=== PATIENT | female | born 1950 | race Caucasian/White ===

== ENCOUNTER → 2017-07-29 | Outpatient (CLI) | payer BC | LOC: GMA 20:53 | PROVIDERS: ATTEND Nurse Practitioner Acute Care | DX: N30.00 Acute cystitis without hematuria (principal) ==

== ENCOUNTER → 2017-07-31 | Outpatient (CLI) | payer BC ==
--- NOTE | 2017-07-31 16:32 | RAD ---
EXAM DESCRIPTION: KUB CLINICAL HISTORY: 67 years Female, Unspecified abdominal pain COMPARISON: None. FINDINGS: The bowel gas pattern is nonobstructive. There are a few small pelvic calcifications which probably represent phleboliths. Postoperative changes are noted in the lumbar spine at multiple levels.. IMPRESSION: Probable pelvic phleboliths. If clinically suspicious of a distal ureteral calculus, noncontrast CT is recommended. No obstruction or other acute intra-abdominal abnormality. Postoperative changes in the lumbar spine. Electronically signed by: Low Gaona MD 07/31/2017 4:31 PM CDT Workstation: [id number]
== END | disposition home or self-care (01) ==
LOC: RAD 15:55
PROVIDERS: ATTEND Obstetrics & Gynecology
DX: R10.9 Unspecified abdominal pain (principal)

== ENCOUNTER → 2017-10-29 | Outpatient (CLI) | payer BC ==
--- NOTE | 2017-10-31 14:34 | MAM ---
EXAM DESCRIPTION: 3D Screening BILATERAL : Digital Mammography. CLINICAL HISTORY: 67 years Female SCREENING . Deep itching below skin. Mother with breast cancer. Postmenopausal. Hormone replacement 5 or more years ago. Prior lumpectomy right breast. COMPARISON: 2-D digital screening bilateral study 10/23/2016 and 09/19/2015. 2-D digital diagnostic right breast study 09/27/2015. Report from prior examination also reviewed. TECHNIQUE: Bilateral CC and MLO projection full-field images, 3-D tomosynthesis digital mammographic technique. Also bilateral synthesized CC/ MLO full-field images. CAD not utilized. FINDINGS: The breast parenchymal density pattern is: Heterogeneously dense breast tissue, which may obscure small masses. No skin thickening or nipple retraction Bilateral axillary lymph nodes. Bilateral solitary microcalcifications. Stable mass with relatively well-circumscribed borders, 5.5 cm from the nipple, in the upper outer quadrant of the anterior third of the right breast at the 930 clock position. No focal, stellate mass or density, focal asymmetry , and no suspicious microcalcifications bilaterally. Stable mammograms compared to prior study, taking into account differences in mammographic technique IMPRESSION: BI-RADS CATEGORY: 2 - BENIGN FINDINGS. FOLLOW UP: Routine digital bilateral screening, one year interval from October 2017. Written communication explaining the IMPRESSION and follow-up, will be mailed to the patient and referring health care provider. According to the [employer], yearly mammograms are recommended starting at age 40 and continuing as long as a woman is in good health. Any breast change noted on a breast self-exam should be reported promptly to the patient's healthcare provider. Breast MRI is recommended for women with an approximately 20-25% or greater lifetime risk of breast cancer, including women with a strong family history of breast or ovarian cancer and women who have been treated for Hodgkin's disease. A negative mammographic report should not delay tissue diagnosis in patients with significant clinical history or physical findings. Extremely dense breast tissue limits the sensitivity of digital mammography. Electronically signed by: Manuelito De MD 10/31/2017 2:33 PM MAPPING ENGINEER
== END ==
LOC: MAMMO 09:56
PROVIDERS: ATTEND Family Medicine
DX: Z12.31 Encounter for screening mammogram for malignant neoplasm of breast (principal)
CPT/HCPCS: 77063; G0202

== ENCOUNTER → 2018-04-01 | Outpatient (CLI) | payer BC ==
--- NOTE | 2018-04-01 16:56 | MAM ---
EXAM DESCRIPTION: 3D Diagnostic, Bilateral: Digital Mammography CLINICAL HISTORY: 67 yearsFemaleLUMP palpable lump mid third right breast upper outer quadrant. Mother with breast cancer. Remote family history of breast cancer. Postmenopausal. Prior cyst aspiration biopsy right breast. Has taken HRT 5 or more years ago.. COMPARISON: 3-D screening bilateral mammography 10/29/2017. Reports from prior examinations also reviewed. TECHNIQUE: Bilateral LM projection full-field images, 3-D tomosynthesis and synthesis full-field images, digital mammographic technique. Also right breast tomosynthesis and synthesis CC MLO full-field images. CAD not utilized. FINDINGS: The breast parenchymal density pattern is: Heterogeneously dense breast tissue, which may obscure small masses. No skin thickening or nipple retraction bilateral solitary microcalcifications. Right axillary lymph node. Approximately 1 cm mass density in the anterior third of the right breast at the 900 clock position. Stable since the prior study. Skin marker at the 1100 clock position. No focal, stellate mass or density, focal asymmetry , and no suspicious microcalcifications left breast. ULTRASOUND: Scanning at the 1200 clock position of the right breast 5 cm from the nipple. Well-defined anechoic mass with thin leonard measuring 8.8 mm. Not vascular. Parallel orientation. Posterior acoustic enhancement. More medial is an anechoic object with well-defined and thin leonard and posterior acoustic enhancement. Nonvascular with parallel orientation. Maximum diameter is 5.3 mm. These are consistent with cysts. Surrounding mostly fibroglandular tissues with minimal fatty echotexture. No distinct solid mass. No parenchymal edema or large calcifications. No overlying skin changes. No abnormal Doppler vascularity. IMPRESSION: BI-RADS CATEGORY: 2 - BENIGN FINDINGS. FOLLOW UP: Return to routine digital bilateral screening, one year interval from October 2017. The FINDINGS and the FOLLOW-UP plan were reviewed in person with the patient after the examination. Written communication explaining the IMPRESSION and FOLLOW-UP will be mailed to the patient and referring care provider. According to the [employer], yearly mammograms are recommended starting at age 40 and continuing as long as a woman is in good health. Any breast change noted on a breast self-exam should be reported promptly to the patient's healthcare provider. Breast MRI is recommended for women with an approximately 20-25% or greater lifetime risk of breast cancer, including women with a strong family history of breast or ovarian cancer and women who have been treated for Hodgkin's disease. A negative mammographic report should not delay tissue diagnosis in patients with significant clinical history or physical findings. Extremely dense breast tissue limits the sensitivity of digital mammography. Electronically signed by: Manuelito De MD 04/01/2018 4:55 PM CDT
--- NOTE | 2018-04-01 16:56 | US ---
EXAM DESCRIPTION: Breast,Right: Ultrasound CLINICAL HISTORY: 67 yearsFemaleBREAST LUMP COMPARISON: Digital 3-D diagnostic tomosynthesis bilateral mammography on this visit. TECHNIQUE: Transcutaneous scanning of the right breast utilizing two-dimensional and Doppler modes. Scanning performed by the rotary peel oven tender only. FINDINGS: Scanning at the 1200 clock position of the right breast 5 cm from the nipple. Well-defined anechoic mass with thin leonard measuring 8.8 mm. Not vascular. Parallel orientation. Posterior acoustic enhancement. More medial is an anechoic object with well-defined and thin leonard and posterior acoustic enhancement. Nonvascular with parallel orientation. Maximum diameter is 5.3 mm. These are consistent with cysts. Surrounding mostly fibroglandular tissues with minimal fatty echotexture. No distinct solid mass. No parenchymal edema or large calcifications. No overlying skin changes. No abnormal Doppler vascularity. IMPRESSION: 1. Bi-Rads Category 2: Benign. 2. Please refer to bilateral diagnostic 3-D tomosynthesis mammographic examination and report on this visit. The FINDINGS and the FOLLOW-UP plan were reviewed in person with the patient after the examination. Written communication explaining the IMPRESSION and FOLLOW-UP will be mailed to the patient and referring care provider. Electronically signed by: Manuelito De MD 04/01/2018 4:55 PM CDT
== END ==
LOC: MAMMO 13:00
PROVIDERS: ATTEND Nurse Practitioner Family
DX: N63.11 Unspecified lump in the right breast, upper outer quadrant (principal)
CPT/HCPCS: 76641; 77066; G0279

== ENCOUNTER 2019-02-09 21:01 | Emergency (ER) | payer BC ==
[2019-02-09] MEDS ORDERED: IBUPROFEN 200 MG TAB PO ONE (21:22)
[2019-02-09 21:31] VITALS: BP 106/69; O2SAT 99
--- NOTE | 2019-02-09 22:15 | RAD ---
EXAM: Chest,2 Views CLINICAL INDICATION: 68-year-old female with fever. TECHNIQUE: Two-view, PA and lateral projections of the chest were obtained. COMPARISON: None. FINDINGS: Unremarkable cardiac and mediastinal silhouette. Heart size is normal. Lungs are clear without focal opacity, pneumothorax or pleural effusions. RIGHT axillary surgical clips and breast extension device noted bilaterally. The visualized bones are within normal limits. IMPRESSION: No acute cardiopulmonary abnormalities. Electronically signed by: Evita Boyd MD 02/09/2019 10:12 PM CDT
--- NOTE | 2019-02-09 22:15 | ED.PDOC ---
History of Present Illness - General Chief Complaint: Fever Stated Complaint: fever onset 1800 Time Seen by Provider: 02/09/19 21:07 Source: patient Exam Limitations: no limitations - History of Present Illness Initial Comments: RECENTLY DIAGNOSED WITH BREAST CA. UNDERWENT DEMETRIUS MASTECTOMIES 01/19. DEVELOPED FEVER TODAY. TMAX 102.4. D/W HER ONCOLOGIST WHO REQUESTED SHE COME TO ER FOR EVALUATION. Timing/Duration: this morning Fever Severity/Quality: greater than 102 F Fever Therapy PRINCIPAL NETWORK ARCHITECT: Tylenol Associated Symptoms: denies symptoms Review of Systems - Review of Systems Constitutional: States: fever. Denies: chills EENTM: Denies: ear pain, nose congestion, throat pain Respiratory: Denies: cough, short of breath Cardiology: Denies: chest pain, palpitations Gastrointestinal/Abdominal: Denies: abdominal pain, nausea, vomiting Genitourinary: Denies: dysuria, frequency, hematuria Musculoskeletal: States: no symptoms reported Skin: States: no symptoms reported Neurological: States: no symptoms reported Endocrine: States: no symptoms reported Hematologic/Lymphatic: States: no symptoms reported Past Medical History (General) - Patient Medical History Hx Seizures: No Hx Stroke: No Hx Dementia: No Hx Asthma: No Hx of COPD: No Hx Cardiac Disorders: No Hx Congestive Heart Failure: No Hx Pacemaker: No Hx Hypertension: No Hx Thyroid Disease: No Hx Diabetes: No Hx Gastroesophageal Reflux: No Hx Renal Disease: No Hx Cancer: Yes - breast Hx of HIV: No Hx Hepatitis C: No Hx MRSA: No - Vaccination History Hx Tetanus, Diphtheria Vaccination: No Hx Influenza Vaccination: No Hx Pneumococcal Vaccination: No - Social History Hx Tobacco Use: Yes - Stopped in 2005 Hx Chewing Tobacco Use: No Hx Alcohol Use: No Hx Substance Use: No Hx Substance Use Treatment: No Hx Depression: No Hx Physical Abuse: No Hx Emotional Abuse: No Hx Suspected Abuse: No - Female History Patient : No Family Medical History - Family History Mother Family History: Unknown Physical Exam - Physical Exam General Appearance: Alert, No apparent distress Eye Exam: bilateral normal ENT Exam: normal ENT inspection, hearing grossly normal, TMs normal, pharynx normal Neck: non-tender, full range of motion, supple Respiratory: lungs clear, normal breath sounds Cardiovascular/Chest: regular rate, rhythm, no murmur, other - DRAIN IN PLACE BILATERALLY, DRAINING SEROUS FLUID, NO ERYTHEMA, NO INDURATION Gastrointestinal/Abdominal: normal bowel sounds, non tender, soft, no organomegaly Extremity: normal range of motion, non-tender, normal inspection, no pedal edema, no calf tenderness Neurologic: alert, normal mood/affect Skin Exam: normal color, warm/dry Lymphatic: no adenopathy Progress - Progress Progress: 02/09/19 23:02 HAVE REVIEWED LAB. GIVEN PT'S HX AND DEGREE OF FEVER, WILL COVER FOR PYELO PENDING URINE CULTURES. - EKG/XRAY/CT XRAY: chest - DEMETRIUS TISSUE EXPANDERS IN PLACE, NO ACUTE INFILTRATE Departure - Departure Clinical Impression: Fever of undetermined origin Breast cancer Qualifiers: Breast location: unspecified site of breast Estrogen receptor status: unspecified Patient sex: female Laterality: bilateral Qualified Code(s): C50.911 - Malignant neoplasm of unspecified site of right female breast; C50.912 - Malignant neoplasm of unspecified site of left female breast Time of Disposition: 23:06 Disposition: Discharge to Home or Self Care Condition: Good Departure Forms: ED Discharge - Pt. Copy, Patient Portal Self Enrollment Instructions: DI for Fever (Symptom) -- Adult Referrals: Elmer Long MD [Primary Care Provider] - 1-2 Weeks Prescriptions: Cefuroxime Axetil [Ceftin] 500 mg PO Q12H #20 tablet Home Medications: Ambulatory Orders Cefuroxime Axetil [Ceftin] 500 mg PO Q12H #20 tablet 02/09/19
[2019-02-09] MEDS ORDERED: cefTRIAXone SODIUM 1 GM in SODIUM CHL 0.9% 50ML MIN-BAG+ 50 ML IVPB ONE (23:03)
[2019-02-09 23:08] VITALS: TEMP 98.5
[2019-02-09] MEDS ORDERED: cefTRIAXone SODIUM 1 GM VIAL ONE (23:10)
[2019-02-09] MEDS ORDERED: LIDOCAINE 1% 2 ML VIAL INJ ONE (23:11)
[2019-02-09] MEDS ORDERED: cefTRIAXone SODIUM 1 GM VIAL IM ONE (23:13)
== END 2019-02-09 23:21 | disposition home or self-care (01) ==
LOC: ER 21:01
DX: R50.9 Fever, unspecified (principal); C50.912 Malignant neoplasm of unspecified site of left female breast; C50.911 Malignant neoplasm of unspecified site of right female breast; Z90.13 Acquired absence of bilateral breasts and nipples; Z87.891 Personal history of nicotine dependence
CPT/HCPCS: 36415; 71046; 80053; 81001; 85025; 87040; 87502; J0696